=== PATIENT | male | born 1965 | race Caucasian/White ===

== ENCOUNTER → 2021-10-22 | Outpatient (CLI) | payer OTHER ==
[~2021-10-22] MED LIST: ALBU90OI INH; AMOX500 PO; AMOX875 PO; CHLO10 PO; CYCL10 PO; EPIN.3I IM; HYDACE10B PO; HYDACE5 PO; HYDR1TAB94 PO; IBUP600 PO; IBUP800 PO; LISI20 PO; LOSA50 PO; LOSHYD PO; LOSHYD100 PO; MELO7.5 PO; METO25; METO50 PO; NAPR500 PO; PENVK500 PO; PROM25 PO; RXSULTRIDS PO; SUBOXONE 8 MG-1 EACH SL; SULTRIDS PO; ZESTORETIC 20-121 EA PO
[2021-10-22 20:05] LABS: Creatinine, Urine Random 98.2 mg/dL (27.00-270.00); Microalb/Creat Ratio UR, Rand 7.312 mg/g (0.000-30.000); Microalbumin, Random Urine 7.18 mg/L (0.000-20.000)
== END | disposition home or self-care (01) ==
LOC: LAB SHORT 18:39
PROVIDERS: Family Medicine
DX: E11.59 Type 2 diabetes mellitus with other circulatory complications (principal)
CPT/HCPCS: 82043; 82570

== ENCOUNTER → 2022-02-26 | Outpatient (CLI) | payer OTHER | END | disposition home or self-care (01) | LOC: LAB 07:53 → LAB SHORT 07:53 | DX: M79.641 Pain in right hand (principal) | CPT/HCPCS: 84550 ==

== ENCOUNTER → 2025-03-03 | Outpatient (CLI) | payer OTHER ==
[2025-03-03 13:44] LABS: Creatinine, Urine Random 49.60 mg/dL (27.00-270.00)
[2025-03-03 13:51] LABS: Microalb/Creat Ratio UR, Rand Unable to Calculate mg/g (0.000-30.000); Microalbumin, Random Urine <5.000 mg/L (0.000-20.000)
== END ==
LOC: LAB 09:30 → LAB SHORT 09:30
PROVIDERS: Family Medicine
DX: E11.36 Type 2 diabetes mellitus with diabetic cataract (principal); E11.59 Type 2 diabetes mellitus with other circulatory complications; E11.69 Type 2 diabetes mellitus with other specified complication
CPT/HCPCS: 82043; 82570

== ENCOUNTER → 2025-04-11 | Outpatient (CLI) | payer OTHER ==
[2025-04-14 17:39] LABS: AMPHETAMINE,URN,QUANT >5000 ng/mL; MDA,URN,QUANT <200 ng/mL; MDEA,URN,QUANT <200 ng/mL; MDMA,URN,QUANT <200 ng/mL; METHAMPHETAMINE,URN,QUANT <200 ng/mL; PHENTERMINE,URN,QUANT <200 ng/mL
== END | disposition home or self-care (01) ==
LOC: LAB 08:40 → LAB SHORT 08:40
PROVIDERS: Family Medicine
DX: Z51.81 Encounter for therapeutic drug level monitoring (principal); Z79.899 Other long term (current) drug therapy
CPT/HCPCS: G0480